=== PATIENT | male | born 1960 | race Two or more races ===

== ENCOUNTER 2025-03-14 08:25 | Day surgery (SDC) | payer MEDICARE, SELFPAY ==
[2025-03-14 08:50] VITALS: BP 172/79
[2025-03-14 08:58] VITALS: BP 172/79
[2025-03-14 09:16] LABS: Glucose - Point of Care 84 mg/dl (70-99)
[2025-03-14 09:43] VITALS: BMI 23.8
[2025-03-14 11:01] VITALS: BP 178/81
[2025-03-14 11:16] VITALS: BP 126/74
--- NOTE | 2025-03-14 11:20 | ITS.CL.CATH ---
Home Demonstration Agent - Catheterization
Cardiac Catheterization
Procedure Report:
RIGHT HEART CATHETERIZATION
Date of Procedure: March 14, 2025
Referring: Dr. Minda Hodge
Primary spring coverer: Dr. Shemar Sood
Indication: The patient is a 65-year-old man with a complex past medical history including coronary artery disease status post CABG who has been referred for right heart cath in the face of progressive interstitial lung disease with elevated
pulmonary pressures noted on echo.
ACCESS: The patient was prepped and draped in usual sterile fashion. A 5 Mosotho sheath was then placed in the right brachial vein using the same technique. Ultrasound guidance was used.
HEMODYNAMIC FINDINGS (mmHg):
RA(a,v,m): 4, 4, 2
RV(s/d,EDP): 53/2, 4
PA(s/d/m): 52/13, 27
PCWP(a,v,m): 10, 8, 7
Hbg (g/dL): 17.1
TPG (mmHg): 20
PVR (Blanchard Units): 6
Oxygen Saturations (mg/dl):
PA: 67% on room air
LV: 97% by pulse oximetry on room air
Cardiac Output/Index by Est Nicole (l/min / l/min/m2):
Estimated Nicole Method: 3.4 / 1.8
Fluoroscopy Time (min): 2.0
Radiation Dose (mGy): 19
DAP (Gy.cm2): 2.9
Closure device: None. Hemostasis achieved with manual pressure alone.
Complications: None
ASSESSMENT:
1: Moderately elevated pulmonary pressures with elevated pulmonary vascular resistance consistent with pulmonary vascular hypertension.
2: Normal left ventricular filling pressures.
3: Normal right atrial pressures suggestive of compensated right-sided heart function.
CONCLUSIONS and RECOMMENDATIONS:
1: Clinical follow-up with lighthouse keeper Dr. Bhavana Hodge and Dr. Sood as scheduled.
Matthieu Moon M.D.
== END 2025-03-14 11:40 | disposition home or self-care (01) ==
LOC: CATH 08:25
PROVIDERS: ATTENDING PHYSICIAN Internal Medicine Interventional Cardiology; FAMILY PHYSICIAN Family Medicine; OTHER PHYSICIAN Internal Medicine Cardiovascular Disease; OTHER PHYSICIAN Internal Medicine Pulmonary Disease
DX: I27.20 Pulmonary hypertension, unspecified (principal); I25.10 Atherosclerotic heart disease of native coronary artery without angina pectoris; J84.9 Interstitial pulmonary disease, unspecified; Z95.1 Presence of aortocoronary bypass graft; I10 Essential (primary) hypertension; E78.2 Mixed hyperlipidemia; E11.9 Type 2 diabetes mellitus without complications
CPT/HCPCS: 82962; 93005; 93451; C1769; C1894